=== PATIENT | female | born 1965 ===

== ENCOUNTER 2016-10-13 09:41 | Day surgery (SDC) | payer OTHER ==
[2016-10-13] MEDS ORDERED: Propofol 10 mg/ml Inj (20 ML) ONE (09:44)
[2016-10-13 10:03] VITALS: BMI 27.1
[2016-10-13 10:08] VITALS: TEMP 98.2
[2016-10-13 10:24] VITALS: RESP 15; O2SAT 100
--- NOTE | 2016-10-13 10:41 | CP.SDSHP ---
Same Day Surgery H & P - History Proposed Procedure: Colonoscopy Pre-Op Diagnosis: average risk colon screening - Previous Medical/Surgical History Comments: no significant history Previous Surgical History: uterine fibroids 2013 - Allergies Allergies: Allergies No Known Allergies Allergy (Verified 02/01/14 11:40) - Current Medications Current Medications: per reconciliation, unknown - Physical Exam General Appearance: wdwn nad Vital Signs: Vital Signs 10/13/16 10/13/16 10:03 10:21 Temperature 98.2 F 98.2 F Pulse Rate 88 80 Respiratory 18 15 Rate Blood Pressure 142/87 145/87 O2 Sat by Pulse 98 100 Oximetry Mental Status: Alert & Oriented x3 Heart: WNL Lungs: WNL GI: WNL - {Optional Preform as Required} Abdomen: WNL - Impression Impression: screening exam Pt. Evaluated Today:Candidate for Anesthesia & Procedure: Yes - Date & Time Date: 10/13/16 Time: 10:41 Short Stay Discharge - Short Stay Discharge Admitting Diagnosis/Reason for Visit: SCREENING Disposition: HOME/ ROUTINE
[2016-10-13 12:11] VITALS: BP 123/68; PULSE 75
== END 2016-10-13 11:50 | disposition home or self-care (01) ==
LOC: C.ENDO 09:41
PROVIDERS: ATTEND Internal Medicine Gastroenterology
DX: Z12.11 Encounter for screening for malignant neoplasm of colon (principal); K62.1 Rectal polyp; K64.0 First degree hemorrhoids
CPT/HCPCS: 45385; 88305; J2704

== ENCOUNTER 2017-07-16 09:17 | Emergency (ER) | payer OTHER ==
[2017-07-16 09:17] VITALS: BMI 27.1
[2017-07-16 09:27] VITALS: TEMP 98.1; O2SAT 96
--- NOTE | 2017-07-16 10:00 | C.PDOC ---
History Of Present Illness 51 year old female presents to the emergency room complaining of 2 days of fever , sore throat, body aches, and cough. Did not take temperature at home. States cough is worsened at night. Taking Aleve with mild relief of symptoms. Additionally patient complains of joint pain particularly at her knees, on and off for 2 weeks. PMD: Dr. Cabrera Time Seen by Provider: 07/16/17 09:54 Chief Complaint (Nursing): Flu-like Symptoms History Per: Patient History/Exam Limitations: no limitations Onset/Duration Of Symptoms: Days (x2) Current Symptoms Are (Timing): Still Present Past Medical History Reviewed: Historical Data, Nursing Documentation, Vital Signs Vital Signs: Last Vital Signs Temp 98.1 F 07/16/17 09:26 Pulse 79 07/16/17 10:38 Resp 16 07/16/17 10:38 BP 138/88 07/16/17 10:38 Pulse Ox 96 07/16/17 10:39 - Medical History PMH: Hypercholesterolemia Denies: Chronic Kidney Disease - [facility] Procedures D & C NEC (02/05/14) HYSTEROSCOPY (02/05/14) LAPAROSCOPIC ROBOTIC ASSISTED PROCEDURE (02/28/14) LAPAROSCOPIC TOTAL ABDOMINAL HYSTERECTOMY (02/28/14) Family History: States: Diabetes, Hypertension - Social History Hx Tobacco Use: No Hx Alcohol Use: Yes Hx Substance Use: No Review Of Systems Except As Marked, All Systems Reviewed And Found Negative. Constitutional: Positive for: Fever (subjective), Other (Body aches) ENT: Positive for: Throat Pain Respiratory: Positive for: Cough. Negative for: Shortness of Breath Musculoskeletal: Positive for: Back Pain, Other (joint pain at knees) Physical Exam - Physical Exam Appears: Non-toxic, No Acute Distress Skin: Normal Color, Warm, Dry Head: Atraumatic, Normacephalic Eye(s): bilateral: Normal Inspection, PERRL, EOMI Ear(s): Bilateral: Normal Nose: Normal Oral Mucosa: Moist Throat: Normal, No Erythema, No Exudate Neck: Normal ROM Lymphatic: Adenopathy (submandibular lymphadenopathy) Chest: Symmetrical Cardiovascular: Rhythm Regular, No Murmur Respiratory: Normal Breath Sounds, No Accessory Muscle Use, No Wheezing Gastrointestinal/Abdominal: Normal Exam, Soft, No Tenderness Back: Normal Inspection, No CVA Tenderness, No Vertebral Tenderness Extremity: Normal ROM (With mild pain on movement of joints), No Tenderness, No Deformity, No Swelling, No Other (warmth or erythema) Neurological/Psych: Oriented x3, Normal Speech, Normal Motor, Normal Sensation Gait: Steady ED Course And Treatment O2 Sat by Pulse Oximetry: 96 (RA) Pulse Ox Interpretation: Normal Medical Decision Making Medical Decision Making: Initial Impression: Flu-like symptoms, Arthritis Patient informed of diagnoses, all questions answered. Will discharge home with rx for Tamiflu and Motrin. Patient advised to follow up with PMD in 1-2 days for further evaluation of joint pain. Disposition Counseled Patient/Family Regarding: Diagnosis, Need For Followup, Rx Given - Disposition Referrals: Gavin Cabrera MD [Staff Provider] - Disposition: HOME/ ROUTINE Disposition Time: 10:23 Condition: STABLE Additional Instructions: Nery, thank you for letting us take care of you today. Return to the ER if your symptoms worsen, or if any problems. Take the medication listed below as prescribed. It is important that you follow up with Dr. Cabrera in 2-3 days for a re- evaluation to investigate your joint pain problems. Prescriptions: Ibuprofen [Motrin] 1 tab PO Q8 PRN #30 tab PRN Reason: Pain, Moderate (4-7) Oseltamivir Phosphate [Tamiflu] 1 tab PO BID #10 capsule Ranitidine HCl [Zantac] 1 tab PO BID #30 tablet Instructions: Influenza (ED), Arthritis (ED) Forms: [employer] (Sami) Print Language: SINHALA - POA Present On Arrival: None - Clinical Impression Clinical Impression: Influenza-like illness, Joint pain - Scribe Statement The provider has reviewed the documentation as recorded by the Scribe (Filomena Santos) Provider Attestation: All medical record entries made by the Scribe were at my direction and personally dictated by me. I have reviewed the chart and agree that the record accurately reflects my personal performance of the history, physical exam, medical decision making, and the department course for this patient. I have also personally directed, reviewed, and agree with the discharge instructions and disposition.
[2017-07-16 10:39] VITALS: BP 138/88; PULSE 79; RESP 16
== END 2017-07-16 10:38 | disposition home or self-care (01) ==
LOC: C.ER 09:17
DX: J11.1 Influenza due to unidentified influenza virus with other respiratory manifestations (principal); M25.50 Pain in unspecified joint

== ENCOUNTER 2017-07-29 14:52 | Observation (INO) | payer OTHER ==
[2017-07-29 15:23] VITALS: BMI 26.5
[2017-07-29] MEDS ORDERED: Sodium Chloride 0.9% 1,000 ML IV STA (16:18)
--- NOTE | 2017-07-29 16:23 | C.PDOC ---
History Of Present Illness 52 y/o F c PMHx HLD p/w body aches, hand/foot cramping x 2 weeks. Patient was in this ED 2/3 and was started on Tamiflu. She states symptoms have not improved and now she also has L sided neck/L upper back pain. She called her PMD today Dr. Cabrera and informed her that she was having neck pain, knee pain, and could not walk and was told by phone to go to ED for further evaluation and treatment for her persistent symptoms. She denies recent travel, current fever, vomiting, diarrhea, dysuria. Time Seen by Provider: 07/29/17 16:00 Chief Complaint (Nursing): Back Pain Past Medical History Vital Signs: Last Vital Signs Temp 98.8 F 07/29/17 15:23 Pulse 78 07/29/17 15:23 Resp 17 07/29/17 15:23 BP 136/86 07/29/17 15:23 Pulse Ox 97 07/29/17 16:24 - Medical History PMH: Hypercholesterolemia Denies: Chronic Kidney Disease - [facility] Procedures D & C NEC (02/05/14) HYSTEROSCOPY (02/05/14) LAPAROSCOPIC ROBOTIC ASSISTED PROCEDURE (02/28/14) LAPAROSCOPIC TOTAL ABDOMINAL HYSTERECTOMY (02/28/14) Family History: States: Diabetes, Hypertension - Social History Hx Tobacco Use: No Hx Alcohol Use: Yes Hx Substance Use: No - Immunization History Hx Tetanus Toxoid Vaccination: No Hx Influenza Vaccination: No Hx Pneumococcal Vaccination: No Review Of Systems Except As Marked, All Systems Reviewed And Found Negative. Respiratory: Negative for: Shortness of Breath Gastrointestinal: Negative for: Vomiting Physical Exam - Physical Exam Additional Physical Exam Comments: Gen: NAD Head: NC/AT Eyes: PERRL ENT: MMM. No pharyngeal erythema or exudates. Neck: Supple. No midline tenderness. No bruit. No pulsatile mass. Negative Kernig/Brudzinski signs. Chest: Nontender CV: Regular rate. Lungs: CTA b/l Abd: Soft, NT Back: No midline tenderness. No CVA tenderness. Extremities: FROM x 4. Mild bilateral knee effusions. Skin: No rash. Neuro: Alert, no focal deficit. Gait steady. ED Course And Treatment - Laboratory Results Result Diagrams: 07/29/17 16:48 07/29/17 16:48 O2 Sat by Pulse Oximetry: 97 Medical Decision Making Medical Decision Making: Discussed case with Dr. Cabrera who recommends a full evaluation and overnight observation. Knee XRs negative for fracture, arthritic changes. CXR shows R lower lobe opacity that obscures heart border, consistent with PNA. Started on CAP antibiotics, blood culture drawn, Lorene Rico accepts patient to [facility] application [facility]. Disposition Discussed With : Qiana Rico Doctor Will See Patient In The: Hospital - Disposition Disposition: HOSPITALIZED Disposition Time: 17:50 Condition: FAIR Forms: [employer] (Urdu) - POA Core Measure Indicators: Pneumonia - Clinical Impression Clinical Impression: Pneumonia
[2017-07-29 16:55] LABS: BASO % 0.6 % (0.0-2.0); EOS # 0.3 K/uL (0.0-0.7); EOS % 3.2 % (0.0-4.0); HEMOGLOBIN 13.6 g/dL (11.0-16.0); LYMPH # 3.1 K/uL (1.0-4.3); LYMPH % 36.7 % (20.0-40.0); MEAN CELL VOLUME 88.2 fL (81.0-99.0); MEAN CORPUSCULAR HEMOGLOBIN 30.4 pg (27.0-31.0); MEAN CORPUSCULAR HGB CONC 34.5 g/dL (33.0-37.0); MEAN PLATELET VOLUME 8.8 fL (7.2-11.7); MONO # 0.6 K/uL (0.0-0.8); MONO % 7.4 % (0.0-10.0); NEUT # 4.4 K/uL (1.8-7.0); NEUT % 52.1 % (50.0-75.0); RBC 4.48 Mil/uL (3.80-5.20); RED CELL DISTRIBUTION WIDTH 12.8 % (11.5-14.5); SQUAMOUS EPITHIAL 1 /hpf (0-5); URINE BACTERIA OCC (<OCC); URINE BILIRUBIN NEGATIVE (NEGATIVE); URINE BLOOD NEGATIVE (NEGATIVE); URINE CLARITY Clear (Clear); URINE COLOR Colorless (YELLOW); URINE GLUCOSE (UA) NORMAL (Normal); URINE LEUKOCYTE ESTERASE NEG Leu/uL (Negative); URINE NITRATE NEGATIVE (NEGATIVE); URINE PROTEIN NEGATIVE (NEGATIVE); URINE UROBILINOGEN NORMAL mg/dL (0.2-1.0); WHITE BLOOD COUNT 8.5 K/uL (4.8-10.8)
[2017-07-29 17:01] LABS: ALB/GLOB RATIO 1.2 (1.0-2.1); ALBUMIN 4.3 g/dL (3.5-5.0); ALT/SGPT 30 U/L (9-52); AST/SGOT 25 U/L (14-36); BLOOD UREA NITROGEN 16 mg/dL (7-17); CALCIUM 9.7 mg/dl (8.6-10.4); GFR AFRICAN-AMERICAN > 60; GFR NON-AFRICAN AMERICAN > 60
[2017-07-29] MEDS ORDERED: Sodium Chloride 0.9% 1,000 ML ONE (17:46)
[2017-07-29] MEDS ORDERED: cefTRIAXone IV 1 gm in Dextros 50 ML IVPB ONE ×2 (17:56→18:39)
[2017-07-29] MEDS ORDERED: Azithromycin 500 MG in Sodium Chloride 0.9% 250 ML IVPB STA (17:56)
[2017-07-29 20:39] VITALS: RESP 20
[2017-07-30] MEDS ORDERED: Morphine 4 MG/ML VIAL IVP PRN (00:29)
--- NOTE | 2017-07-30 08:39 | RAD ---
HISTORY: knee pain/swelling COMPARISON: Comparison is made with 02/01/2014 TECHNIQUE: Chest PA and lateral FINDINGS: LUNGS: No active pulmonary disease. PLEURA: No significant pleural effusion identified. No pneumothorax apparent. CARDIOVASCULAR: Normal. OSSEOUS STRUCTURES: No significant abnormalities. VISUALIZED UPPER ABDOMEN: Normal. OTHER FINDINGS: None. IMPRESSION: No active disease.
[2017-07-30 08:40] LABS: BASO % 0.3 % (0.0-2.0); EOS # 0.2 K/uL (0.0-0.7); EOS % 4.3 % (0.0-4.0); HEMOGLOBIN 13.5 g/dL (11.0-16.0); LYMPH # 2.3 K/uL (1.0-4.3); LYMPH % 43.8 % (20.0-40.0); MEAN CELL VOLUME 87.3 fL (81.0-99.0); MEAN CORPUSCULAR HEMOGLOBIN 30.6 pg (27.0-31.0); MEAN PLATELET VOLUME 9.1 fL (7.2-11.7); MONO # 0.4 K/uL (0.0-0.8); MONO % 6.8 % (0.0-10.0); NEUT # 2.3 K/uL (1.8-7.0); NEUT % 44.8 % (50.0-75.0); RBC 4.41 Mil/uL (3.80-5.20); RED CELL DISTRIBUTION WIDTH 12.9 % (11.5-14.5); WHITE BLOOD COUNT 5.2 K/uL (4.8-10.8)
--- NOTE | 2017-07-30 08:46 | RAD ---
PROCEDURE: Bilateral Knee Radiographs. HISTORY: body aches COMPARISON: None. FINDINGS: BONES: Right Knee: Normal. No fracture. Left Knee: Normal. No fracture. JOINTS: Right Knee: Moderate osteoarthritic changes Left knee: Moderate osteoarthritic changes SOFT TISSUES: Right Knee: Mild soft tissue swelling Left Knee: Mild soft tissue swelling JOINT EFFUSION: Right Knee: No significant joint effusion Left Knee: No significant joint effusion OTHER FINDINGS: None. IMPRESSION: Moderate osteoarthritic changes
[2017-07-30 08:56] LABS: BLOOD UREA NITROGEN 13 mg/dL (7-17); CALCIUM 8.6 mg/dl (8.6-10.4); GFR AFRICAN-AMERICAN > 60; GFR NON-AFRICAN AMERICAN > 60
[2017-07-30 09:11] LABS: B-TYPE NATRIURETIC PEPTIDE 187 pg/mL (0-900)
[2017-07-30 17:42] VITALS: BP 117/77; PULSE 74; TEMP 98.1; O2SAT 97
--- NOTE | 2017-07-30 18:07 | CP.PCM.HP ---
Past Patient History - Past Medical History & Family History Past Medical History?: Yes - Past Social History Smoking Status: Never Smoked - CARDIAC Hx Hypercholesterolemia: Yes - PULMONARY Hx Respiratory Disorders: No - NEUROLOGICAL Hx Neurological Disorder: No - HEENT Hx HEENT Problems: No - RENAL Hx Chronic Kidney Disease: No - ENDOCRINE/METABOLIC Hx Endocrine Disorders: No - HEMATOLOGICAL/ONCOLOGICAL Hx Blood Disorders: No - INTEGUMENTARY Hx Dermatological Problems: No - MUSCULOSKELETAL/RHEUMATOLOGICAL Hx Musculoskeletal Disorders: No Hx Falls: No - GASTROINTESTINAL Hx Gastrointestinal Disorders: No - GENITOURINARY/GYNECOLOGICAL Hx Genitourinary Disorders: Yes (SEE COMMENT) Other/Comment: FIBROID UTERUS - PSYCHIATRIC Hx Substance Use: No - SURGICAL HISTORY Hx Surgeries: Yes (SEE COMMENT) Hx Hysterectomy: Yes (2013) - ANESTHESIA Hx Anesthesia: Yes Hx Anesthesia Reactions: No Hx Malignant Hyperthermia: No Has any member of the family had a problem w/ anesthesia?: No Meds Allergies/Adverse Reactions: Allergies Allergy/AdvReac Type Severity Reaction Status Date / Time No Known Allergies Allergy Verified 07/29/17 15:22 Results - Vital Signs Recent Vital Signs: Last Vital Signs Temp 98.1 F 07/30/17 16:00 Pulse 74 07/30/17 16:00 Resp 20 07/30/17 16:00 BP 117/77 07/30/17 16:00 Pulse Ox 97 07/30/17 16:00 - Labs Result Diagrams: 07/30/17 08:26 07/30/17 08:26 Labs: Laboratory Results - last 24 hr 07/30/17 07/30/17 08:26 08:26 WBC 5.2 RBC 4.41 Hgb 13.5 Hct 38.6 MCV 87.3 MCH 30.6 MCHC 35.0 RDW 12.9 Plt Count 251 MPV 9.1 Neut % (Auto) 44.8 L Lymph % (Auto) 43.[address] [place] % (Auto) 6.8 Eos % (Auto) 4.3 H Baso % (Auto) 0.3 Neut # (Auto) 2.3 Lymph # (Auto) 2.3 [place] # (Auto) 0.4 Eos # (Auto) 0.2 Baso # (Auto) 0.0 Sodium 135 Potassium 3.7 Chloride 102 Carbon Dioxide 26 Anion Gap 12 BUN 13 Creatinine 0.6 L Est GFR ( Amer) > 60 Est GFR (Non-Af Amer) > 60 Random Glucose 86 Calcium 8.6 NT-Pro-B Natriuret Pep 187 Vitamin B12 762 TSH 3rd Generation 0.39 L
[2017-07-30] MEDS ORDERED: Azithromycin 500 MG in Sodium Chloride 0.9% 250 ML IVPB SCH ×2 (19:00→20:00)
[2017-07-30 19:13] LABS: FREE T4 0.99 ng/dL (0.78-2.19)
[2017-07-30] MEDS ORDERED: Pneumococcal 23-Valent Vaccine IM ONE (21:30)
[2017-07-30] MEDS ORDERED: Influenza Vaccine 60 mcg/0.5 mL SYR (4YR UP) IM ONE (21:30)
--- NOTE | 2017-08-01 12:50 | CARD ---
APPROVED REPORT EKG Measurement Heart [id number] <Conclusion> Normal sinus rhythm Incomplete right bundle branch block Borderline ECG
== END 2017-07-30 22:05 | disposition home or self-care (01) ==
LOC: C.ER 14:52 → C.9E 17:59 → INTOOBSV 17:59 → C.3T 18:57
PROVIDERS: ADMIT Internal Medicine; ATTEND Internal Medicine
DX: J18.9 Pneumonia, unspecified organism (principal); I10 Essential (primary) hypertension; E78.5 Hyperlipidemia, unspecified; Z90.710 Acquired absence of both cervix and uterus; E78.00 Pure hypercholesterolemia, unspecified; E11.9 Type 2 diabetes mellitus without complications
CPT/HCPCS: 36415; 71046; 73560; 80048; 80053; 81001; 82550; 82607; 83735; 83880; 84100; 84439; 84443; 84703; 85025; 87040; 87086; 87804; 90471; 90674; 90732; 96361; 96365; 96375; 99285; G0378; J0456; J0696; J1885; J7040; J7050